=== PATIENT | male | born 1935 | race Caucasian/White ===

== ENCOUNTER 2023-10-07 14:49 | Inpatient (IN) | payer MEDICARE, BC ==
[~2023-10-07 14:49] MED LIST: Iopamidol-370 76% 500 ML MDV (1 ML CHARGE) ONE
[2023-10-07] MEDS ORDERED: methylPREDNISolone Sod Succ/PF 125 MG/2 ML VIAL ONE (15:28)
[2023-10-07] MEDS ORDERED: Albuterol 2.5 MG (0.5 mL) NEB ONE (15:38)
[2023-10-07 15:43] LABS: SARS-CoV-2 NAA Rapid Test DETECTED (NotDetected)
[2023-10-07 15:58] LABS: #Basophils 0.1 thou/uL (0.0-0.2); #Monocytes 0.7 thou/uL (0.11-0.59); %Basophils 0.7 % (0.0-1.0); %Eosinophils 0.4 % (0.0-10.0); %Monocytes 8.9 % (0.0-10.0); %Neutrophils 80.6 % (42.0-75.0); Hematocrit 43.7 % (42.0-52.0); Hemoglobin 14.4 g/dL (14.0-18.0); Mean Corpuscular Hemoglobin 31.9 pg (27.0-31.0); Mean Corpuscular Volume 96.7 fl (78.0-98.0); Mean Platelet Volume 9.2 fL (7.4-10.4); Platelet Count 123 10x3/uL (130-400); RBC Distribution Width 13.4 % (11.5-14.5); Red Blood Cell (RBC) Count 4.52 mill/uL (4.70-6.10); White Blood Cell (WBC) Count 7.4 10x3/uL (4.8-10.8)
[2023-10-07 16:28] LABS: ALT (SGPT) 20 U/L (8-55); AST (SGOT) 26 U/L (5-34); Albumin 3.9 g/dL (3.4-4.8); Alkaline Phosphatase 80 U/L (40-110); Anion Gap 13 mmol/L (10-20); BUN (Urea Nitrogen) 12 mg/dL (8.4-25.7); Bilirubin, Total 0.8 mg/dL (0.2-1.2); Calc. Creatinine Clearance 0 mL/min (70-130); Calcium 9.2 mg/dL (7.8-10.44); Carbon Dioxide 22 mmol/L (23-31); Chloride 103 mmol/L (98-107); Estimated GFR 83; Globulin 3.2 g/dL (2.4-3.5); Glucose 122 mg/dL (83-110); Potassium 3.8 mmol/L (3.5-5.1); Protein, Total 7.1 g/dL (5.8-8.1); Sodium 134 mmol/L (136-145)
[2023-10-07 16:33] LABS: Troponin I Less than 0.010 ng/mL (< 0.028)
[2023-10-07] MEDS ORDERED: Metoprolol Tartrate 5 MG (5 mL) VIAL ONE (17:21)
[2023-10-07] MEDS ORDERED: Magnesium 2 GM/50 ML BAG (IN WATER) ONE (17:21)
[2023-10-07 19:34] LABS: Lactic Acid 3.4 mmol/L (0.5-2.2)
[2023-10-07] MEDS ORDERED: Vancomycin 1 GM/200 ML (FROZEN) BAG ONE (19:49)
[2023-10-07] MEDS ORDERED: Cefepime 2 GM VIAL ONE (19:49)
[2023-10-07] MEDS ORDERED: Sodium Chloride 0.9% 100 ML ONE (19:50)
[2023-10-07] MEDS ORDERED: Acetaminophen 325 MG TAB PO PRN (21:31)
[2023-10-07] MEDS ORDERED: Calcium Carbonate 500 MG ChewTAB PO PRN (21:31)
[2023-10-07] MEDS ORDERED: Ondansetron ODT 4 MG TAB PO PRN (21:31)
[2023-10-07] MEDS ORDERED: Dextrose 5%-Lactated Ringers 1,000 ML IV SCH (21:45)
[2023-10-07] MEDS ORDERED: Albuterol 200 PUFF (6.7GM INHALER) INH PRN (21:47)
[2023-10-08] MEDS ORDERED: REMDESIVIR 200 MG in Sodium Chloride 0.9% 250 ML 210 ML IV SCH (02:00)
[2023-10-08 04:49] LABS: #Monocytes 0.1 thou/uL (0.11-0.59); %Basophils 0.2 % (0.0-1.0); %Lymphocytes 10.8 % (21.0-51.0); %Monocytes 2.6 % (0.0-10.0); %Neutrophils 85.5 % (42.0-75.0); Hematocrit 37.1 % (42.0-52.0); Hemoglobin 12.4 g/dL (14.0-18.0); Mean Corpuscular HGB CONC 33.4 g/dL (32.0-36.0); Mean Corpuscular Hemoglobin 32.2 pg (27.0-31.0); Mean Corpuscular Volume 96.4 fl (78.0-98.0); Mean Platelet Volume 9.6 fL (7.4-10.4); Platelet Count 123 10x3/uL (130-400); RBC Distribution Width 13.3 % (11.5-14.5); Red Blood Cell (RBC) Count 3.85 mill/uL (4.70-6.10); White Blood Cell (WBC) Count 4.6 10x3/uL (4.8-10.8)
[2023-10-08 05:09] LABS: Anion Gap 11 mmol/L (10-20); BUN (Urea Nitrogen) 16 mg/dL (8.4-25.7); Calc. Creatinine Clearance 60 mL/min (70-130); Calcium 8.2 mg/dL (7.8-10.44); Carbon Dioxide 19 mmol/L (23-31); Chloride 107 mmol/L (98-107); Estimated GFR 77; Glucose 329 mg/dL (83-110); Potassium 3.9 mmol/L (3.5-5.1); Sodium 133 mmol/L (136-145)
[2023-10-08] MEDS ORDERED: Rivaroxaban 10 MG TAB ONE (08:57)
[2023-10-08] MEDS ORDERED: cefTRIAXone\\ROCEPHIN 1 GM in Sodium Chloride 0.9% 100 ML IVPB SCH (09:00)
[2023-10-08] MEDS ORDERED: Sodium Chloride 0.9% 0 ML ONE (09:08)
[2023-10-08] MEDS ORDERED: Doxycycline 100 MG CAP ONE (09:08)
[2023-10-08] MEDS ORDERED: Cefepime 1 GM VIAL ONE (09:08)
[2023-10-08] MEDS ORDERED: Famotidine 20 MG TAB ONE (09:08)
[2023-10-08] MEDS: Doxycycline 100 MG CAP PO SCH ×2 (09:10→21:35)
[2023-10-08] MEDS: Cefepime 1 GM in Sodium Chloride 0.9% 100 ML IVPB SCH ×2 (09:10→21:35)
[2023-10-08] MEDS: Famotidine 20 MG TAB PO SCH ×2 (09:10→21:36)
[2023-10-08] MEDS ORDERED: Guaifenesin DM 100-10/5 ML UDCUP PO PRN (10:06)
[2023-10-08] MEDS ORDERED: Acetaminophen 500 MG TAB PO PRN (10:06)
[2023-10-08 13:19] LABS: Bacteria/HPF None Seen HPF (None Seen); Bilirubin Negative (Negative); Blood, Urine Negative (Negative); CAUTI Indications for Culture Fever or rigors; Clarity Clear (Clear); Glucose, Urine (Dipstick) 100 mg/dL (Negative); Ketone, Urine Negative (Negative); Leukocyte Negative Leu/uL (Negative); Nitrite Negative (Negative); Protein, Urine (Dipstick) Negative (Neg-Trace); RBC/HPF 0-3 HPF (0-3); Specific Gravity, Urine 1.011 (1.002-1.036); Squamous Epithelial None Seen HPF (0-3); Urobilinogen Normal mg/dL (Less than 2); WBC/HPF 0-3 HPF (0-3); pH, Urine 5.5 (5.0-9.0)
[2023-10-08 13:22] LABS: Urine Culture Reflex No No
[2023-10-08] MEDS ORDERED: Albuterol 200 PUFF (6.7GM INHALER) ONE (14:05)
[2023-10-08] MEDS: Albuterol 200 PUFF (6.7GM INHALER) INH SCH ×3 (14:10→22:10)
[2023-10-08 17:09] VITALS: BMI 23.9
[2023-10-08] MEDS ORDERED: Albuterol 200 PUFF (6.7GM INHALER) INH PRN (18:30)
[2023-10-08] MEDS: Mometasone Furoate 30 PUFF 220 MCG INH SCH (18:30)
[2023-10-08] MEDS: Apixaban 5 MG TAB PO SCH (21:35)
[2023-10-08] MEDS: REMDESIVIR 100 MG in Sodium Chloride 0.9% 250 ML 230 ML IV SCH (21:36)
[2023-10-09] MEDS: Cefepime 1 GM in Sodium Chloride 0.9% 100 ML IVPB SCH ×2 (10:22→20:36)
[2023-10-09] MEDS: Metoprolol Tartrate 25 MG TAB PO SCH (10:22)
[2023-10-09] MEDS: Cyanocobalamin (Vitamin B-12) 1,000 MCG TAB PO SCH (10:22)
[2023-10-09] MEDS: Doxycycline 100 MG CAP PO SCH ×2 (10:22→20:35)
[2023-10-09] MEDS: Vit A,C & E/Lutein/Minerals Tablet PO SCH (10:22)
[2023-10-09] MEDS: Apixaban 5 MG TAB PO SCH ×2 (10:22→20:35)
[2023-10-09] MEDS: Famotidine 20 MG TAB PO SCH ×2 (10:22→20:35)
[2023-10-09] MEDS: Albuterol 200 PUFF (6.7GM INHALER) INH SCH ×3 (18:03→18:38)
[2023-10-09] MEDS: Mometasone Furoate 30 PUFF 220 MCG INH SCH (18:38)
[2023-10-09] MEDS: REMDESIVIR 100 MG in Sodium Chloride 0.9% 250 ML 230 ML IV SCH (20:35)
[2023-10-09] MEDS ORDERED: Atorvastatin Calcium 20 MG TAB PO SCH (21:00)
[2023-10-09] MEDS ORDERED: QUEtiapine 25 MG TAB PO SCH (23:30)
[2023-10-10] MEDS: Albuterol 200 PUFF (6.7GM INHALER) INH SCH (01:02)
[2023-10-10] MEDS: Famotidine 20 MG TAB PO SCH (08:38)
[2023-10-10] MEDS: Apixaban 5 MG TAB PO SCH (08:38)
[2023-10-10] MEDS: Cefepime 1 GM in Sodium Chloride 0.9% 100 ML IVPB SCH (08:38)
[2023-10-10] MEDS: Cyanocobalamin (Vitamin B-12) 1,000 MCG TAB PO SCH (08:38)
[2023-10-10] MEDS: Metoprolol Tartrate 25 MG TAB PO SCH (08:38)
[2023-10-10] MEDS: Doxycycline 100 MG CAP PO SCH (08:38)
[2023-10-10] MEDS: Vit A,C & E/Lutein/Minerals Tablet PO SCH (08:38)
[2023-10-10 15:06] VITALS: BP 127/68; TEMP 97.4
== END 2023-10-10 15:28 | DRG 871 ==
LOC: ERS 14:49 → INTOOBSV 21:35 → ERHOLD 21:35 → 2NO 10-08 16:31 → OBSVTOIN 10-08 17:45
PROVIDERS: ADMIT Student in an Organized Health Care Education/Training Program; ATTEND Family Medicine
PROC: 3E03329 Introduction of Other Anti-infective into Peripheral Vein, Percutaneous Approach (ICD-10-PCS; principal; 2023-10-08)
PROC: XW033E5 Introduction of Remdesivir Anti-infective into Peripheral Vein, Percutaneous Approach, New Technology Group 5 (ICD-10-PCS; 2023-10-08)
PROC: 8E0ZXY6 Isolation (ICD-10-PCS; 2023-10-08)
DX: A41.9 Sepsis, unspecified organism (principal); U07.1 COVID-19; R53.1 Weakness; F03.90 Unspecified dementia, unspecified severity, without behavioral disturbance, psychotic disturbance, mood disturbance, and anxiety; I48.0 Paroxysmal atrial fibrillation; J44.9 Chronic obstructive pulmonary disease, unspecified; Z95.1 Presence of aortocoronary bypass graft; Z88.5 Allergy status to narcotic agent; Z88.0 Allergy status to penicillin
CPT/HCPCS: 36415; 71045; 71275; 80048; 80053; 81001; 83605; 83880; 84484; 85025; 87040; 87077; 87086; 87149; 93005; 94640; 96361; 96365; 96367; 96375; G0378; J0248; J0692; J2930; J3370-JW; J3475; J3490; J7050; J7611; Q9967

== ENCOUNTER 2025-08-22 07:55 | Inpatient (IN) | payer MEDICARE, BC ==
[2025-08-22] MEDS ORDERED: Magnesium 2 GM/50 ML BAG (IN WATER) ONE (08:22)
[2025-08-22] MEDS ORDERED: predniSONE 20 MG TAB ONE (08:22)
[2025-08-22 09:01] LABS: #Basophils 0.10 10x3/uL (0.0-0.2); #Eosinophils 0.68 10x3/uL (0.0-0.7); #Monocytes 0.73 10x3/uL (0.11-0.59); #Neutrophils 5.09 10x3/uL (1.40-6.50); %Basophils 1.2 % (0.0-1.0); %Eosinophils 8.1 % (0.0-10.0); %Lymphocytes 20.7 % (21.0-51.0); %Monocytes 8.7 % (0.0-10.0); %Neutrophils 60.9 % (42.0-75.0); Hematocrit 43.1 % (42.0-52.0); Hemoglobin 14.3 g/dL (14.0-18.0); Mean Corpuscular Hemoglobin 30.5 pg (27.0-31.0); Mean Corpuscular Volume 91.9 fL (78.0-98.0); Platelet Count 129 10x3/uL (130-400); Red Blood Cell (RBC) Count 4.69 mill/uL (4.70-6.10); White Blood Cell (WBC) Count 8.36 10x3/uL (4.8-10.8)
[2025-08-22 09:25] LABS: ALT (SGPT) 23 U/L (Less than 45); Albumin 3.7 g/dL (3.1-4.5); Alkaline Phosphatase 97 U/L (40-110); Anion Gap 15 mmol/L (10-20); BUN (Urea Nitrogen) 13 mg/dL (8.4-25.7); Bilirubin, Total 1.0 mg/dL (0.3-1.2); Calc. Creatinine Clearance 0 mL/min (70-130); Calcium 9.0 mg/dL (7.8-10.44); Carbon Dioxide 23 mmol/L (23-31); Chloride 107 mmol/L (98-107); Globulin 2.6 g/dL (2.4-3.5); Glucose 117 mg/dL (83-110); Magnesium 2.0 mg/dL (1.6-2.6); Potassium 4.8 mmol/L (3.5-5.1); Sodium 140 mmol/L (136-145)
[2025-08-22 09:41] LABS: AST (SGOT) 28 U/L (11-34)
[2025-08-22 11:57] LABS: Actual Bicarbonate (HCO3v) 21.8 mEq/L (22-28); Base Excess -3.7 mEq/L (-2.0 to +3.0); Calcium, Ionized (venous) 1.14 mmol/L (1.16-1.32); Chloride (VBG) 102 mmol/L (98-106); Hematocrit-VBG 44 % (42.0-52.0); Hemoglobin (Hb) 14.9 g/dL (12.6-17.4); Potassium (VBG) 4.15 mmol/L (3.70-5.30); Sodium 139 mmol/L (133-146)
[2025-08-22 14:10] VITALS: BMI 21.2
[2025-08-22 19:38] LABS: Legionella Urinary Ag Negative (Negative); Strep pneumo Urine Ag NEGATIVE (NEGATIVE)
[2025-08-22] MEDS: Apixaban 5 MG TAB PO SCH (20:28)
[2025-08-23] MEDS: Benzonatate 100 MG CAP PO PRN (03:35)
[2025-08-23] MEDS: Metoprolol Succinate XL 25 MG ER.TAB PO SCH (09:03)
[2025-08-23] MEDS: predniSONE 20 MG TAB PO SCH (09:03)
[2025-08-23 11:15] LABS: ALT (SGPT) 16 U/L (Less than 45); AST (SGOT) 20 U/L (11-34); Albumin 3.4 g/dL (3.1-4.5); Alkaline Phosphatase 67 U/L (40-110); Anion Gap 10 mmol/L (10-20); BUN (Urea Nitrogen) 16 mg/dL (8.4-25.7); Bilirubin, Total 0.8 mg/dL (0.3-1.2); Calc. Creatinine Clearance 63 mL/min (70-130); Calcium 9.0 mg/dL (7.8-10.44); Carbon Dioxide 30 mmol/L (23-31); Chloride 104 mmol/L (98-107); Globulin 2.3 g/dL (2.4-3.5); Glucose 164 mg/dL (83-110); Magnesium 1.9 mg/dL (1.6-2.6); Potassium 3.5 mmol/L (3.5-5.1); Sodium 140 mmol/L (136-145)
[2025-08-23 13:07] LABS: Hematocrit 39.8 % (42.0-52.0); Hemoglobin 12.6 g/dL (14.0-18.0); Mean Corpuscular Hemoglobin 29.6 pg (27.0-31.0); Mean Corpuscular Volume 93.6 fL (78.0-98.0); Platelet Count 133 10x3/uL (130-400); Red Blood Cell (RBC) Count 4.25 mill/uL (4.70-6.10); White Blood Cell (WBC) Count 8.96 10x3/uL (4.8-10.8)
[2025-08-23 13:42] LABS: #Basophils 0.04 10x3/uL (0.0-0.2); #Eosinophils 0.17 10x3/uL (0.0-0.7); #Monocytes 0.79 10x3/uL (0.11-0.59); #Neutrophils 6.21 10x3/uL (1.40-6.50); %Basophils 0.4 % (0.0-1.0); %Eosinophils 1.9 % (0.0-10.0); %Lymphocytes 19.3 % (21.0-51.0); %Monocytes 8.8 % (0.0-10.0); %Neutrophils 69.4 % (42.0-75.0)
[2025-08-25] MEDS: PNEUMOC 20-VAL CONJ-DIP CRM/PF 0.5 ML SYRINGE IM ONE (17:31)
[2025-08-25 17:36] VITALS: BP 112/64; TEMP 97.9
[2025-08-25 23:09] LABS: Mycoplasma pneumoniae IgG AB 1039 U/mL (0-99); Mycoplasma pneumoniae IgM AB Less than 770 U/mL (0-769)
== END 2025-08-25 18:57 | disposition home or self-care (01) | DRG 189 ==
LOC: ERS 07:55 → SUATTDRO 07:55 → T4-A 10:28 → OBSVTOIN 08-23 16:08
PROVIDERS: ADMIT Family Medicine; ATTEND Hospitalist
PROC: 3E03329 Introduction of Other Anti-infective into Peripheral Vein, Percutaneous Approach (ICD-10-PCS; 2025-08-23)
PROC: 3E0234Z Introduction of Serum, Toxoid and Vaccine into Muscle, Percutaneous Approach (ICD-10-PCS; principal; 2025-08-25)
DX: J96.01 Acute respiratory failure with hypoxia (principal); J44.1 Chronic obstructive pulmonary disease with (acute) exacerbation; J45.909 Unspecified asthma, uncomplicated; I10 Essential (primary) hypertension; Z88.5 Allergy status to narcotic agent; Z88.0 Allergy status to penicillin; F03.90 Unspecified dementia, unspecified severity, without behavioral disturbance, psychotic disturbance, mood disturbance, and anxiety; Z98.890 Other specified postprocedural states; D69.6 Thrombocytopenia, unspecified; I48.0 Paroxysmal atrial fibrillation; Z23 Encounter for immunization
CPT/HCPCS: 36415; 36416; 71045; 80053; 82805; 83735; 83880; 84484; 85025; 87081; 87428; 87449; 87899; 90471; 90677; 93005; 93010; 94640; 94760; 96365; G0009; G0378; J3475; J7512